=== PATIENT | male | born 1965 | race Caucasian/White ===

== ENCOUNTER 2019-07-12 04:14 | Emergency (ER) | payer OTHER, MEDICAID ==
[2019-07-12] MEDS: HYDROCODONE/APAP (10/325) TAB PO (05:03)
== END 2019-07-12 07:56 | disposition home or self-care (01) ==
LOC: E/R 04:14
DX: S82.202A Unspecified fracture of shaft of left tibia, initial encounter for closed fracture (principal); I12.0 Hypertensive chronic kidney disease with stage 5 chronic kidney disease or end stage renal disease; N18.6 End stage renal disease; S82.402A Unspecified fracture of shaft of left fibula, initial encounter for closed fracture; W22.03XA Walked into furniture, initial encounter; Y92.9 Unspecified place or not applicable; Z99.2 Dependence on renal dialysis
CPT/HCPCS: 29505; 73590; 99283-25